=== PATIENT | male | born 2000 | race Caucasian/White ===

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

== ENCOUNTER → 2023-06-08 | Outpatient (CLI) | payer OTHER, SELFPAY ==
--- NOTE | 2023-06-07 12:11 | MRI_ITS ---
STUDY: MRI RIGHT ANKLE WITHOUT CONTRAST REASON FOR EXAM: Male, 22 years old. pain TECHNIQUE: Standardized fat and water weighted pulse sequences were obtained in all 3 orthogonal planes. COMPARISON: X-ray 05/15/2023 FINDINGS: Normal subcutis adipose space. Normal posterior tibialis tendon. Normal flexor digitorum longus tendon. Normal flexor hallucis longus tendon. Normal peroneus longus and brevis tendons. Normal tibialis anterior tendon. Normal extensor hallucis longus tendon. Normal extensor digitorum longus tendons. Normal Achilles tendon and teno-osseous insertion. Normal plantar fascia. Normal plantar calcaneal tubercles. Normal intrinsic muscles of the rearfoot. Normal distal tibiofibular syndesmotic ligamentous complex. Normal lateral ligamentous complex. Normal subtalar ligaments and sinus tarsi. Normal deltoid ligamentous complexes. Normal plantar calcaneonavicular (spring) ligament. Normal tibiotalar articulation. 5 x 12 mm grade 3 osteochondral defect of the medial shoulder of the talar dome with surrounding mild stress reaction. Normal subtalar articulations. Normal talonavicular articulation. Normal calcaneocuboid articulation. Normal navicular-cuneiform articulations. MRI/Lower Ext Joint Only (Routine) IMPRESSION: 5 x 12 mm grade 3 osteochondral defect of the medial shoulder of the talar dome with surrounding mild stress reaction. Electronically Signed: Marcial Redding MD at 21:01 EDT ,
== END | disposition home or self-care (01) ==
LOC: MRI 07:52
PROVIDERS: Referring Provider Orthopaedic Surgery; Visit Provider Orthopaedic Surgery
DX: M93.279 Osteochondritis dissecans, unspecified ankle and joints of foot (principal); S99.911A Unspecified injury of right ankle, initial encounter
CPT/HCPCS: 73721

== ENCOUNTER → 2023-09-06 | Outpatient (CLI) | payer OTHER, SELFPAY ==
[2023-09-06 19:10] LABS: Magnesium 2.6 mg/dL (1.6-2.6)
== END | disposition home or self-care (01) ==
LOC: LAB 16:29
PROVIDERS: Visit Provider Podiatrist Foot & Ankle Surgery
DX: Z01.818 Encounter for other preprocedural examination (principal)
CPT/HCPCS: 36415; 83735; 87081

== ENCOUNTER 2023-09-13 06:07 | Day surgery (SDC) | payer OTHER, SELFPAY ==
[2023-09-13] VITALS (9 sets, daily range): BP systolic 117–134; BP diastolic 54–71; PULSE 106–130; RESP 14–20; TEMP 37.3–37.9; O2SAT 99–100; BMI 23.1
[2023-09-13] MEDS: Acetaminophen 500 MG Tablet 1000 MG PO (06:52)
[2023-09-13] MEDS: Magnesium 1 GM over 15 mins IV (06:53)
[2023-09-13] MEDS: Lactated Ringers 1,000 ML 15 ML IV ×2 (06:53→09:20)
[2023-09-13] MEDS: Gabapentin 600 MG Tablet PO (06:53)
--- NOTE | 2023-09-13 07:32 | PCM.OPRPT ---
Problems Associated Problem List Diagnoses (1) Osteochondritis dissecans of ankle: (2) Right ankle injury: Report of Operation Date of Procedure: 09/13/23 Pre-Operative Diagnosis: 1. Osteochondritis dissecans, right ankle 2. Pain, right ankle Post-Operative Diagnosis: 1. Osteochondritis dissecans, right ankle 2. Pain, right ankle Surgery/Procedure Performed:: 1. Arthroscopy of right ankle with excessive debridement, right ankle 2. Arthroscopic repair of osteochondral dissecans repair, right ankle 2. [place] of bone marrow aspirate 3. PRP injection, right ankle Description of Surgical Findings:: 1. Evidence of OCD to the lateral aspect of the tibial plafond, right ankle 2. Complete resection of cartilage overlying the OCD of the medial talar shoulder, right ankle 3. Successful microfracturing of the OCD, medial talar shoulder, right ankle 4. Injection of 3 cc of PRP, right ankle Surgeon: Jb Gilbert skin care specialist: Casa Vincent Type of Anesthesia: Block,Regional and General Anesthesiologist: Alex Hansen Special Medications: 3 cc of platelet rich plasma injection to the right ankle Specimen's removed: None Drains: None Estimated Blood Loss (mL): 10 mL Fluids Replaced: Per anesthesia Description of Procedure: Indications For Operation: Mr. Robertson is a 22-year-old male who was admitted to [facility] for surgical repair of the right lower extremity OCD. Patient was initially seen by the orthopedic surgeon and referred to the office for foot and ankle evaluation. Patient had extensive workup with MRI as well as plain film x-ray. 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 Patient had surgical consultation in the office. Due to the nature of the OCD to the right ankle and had deemed necessary at this time to take the patient to the operating room to help relieve his constant pain. The nature of the problem, anticipated procedures, postop recovery/convalences and risk/complications include but not limited to infection, wound healing complications, hypertrophic scarring, numbness, tingling, chronic pain, CRPS, over and under correction, recurrence of deformity, DVT and or PE and the need for further surgery have been discussed in great detail with the patient. All questions have been answered to the patient's satisfaction. There are no guarantees given as to the outcome of the procedure. Description of Procedure: Under mild sedation, the patient was brought into the operating room and placed on the operating table in supine position. Once the patient was under general anesthesia with laryngeal mask airway, the right lower extremity was blocked per anesthesia with popliteal and saphenous block. Next, the right ankle had 10 cc of 1% lidocaine with epinephrine injected without incident. Please see anesthesia note for further detail. Next, a well-padded thigh tourniquet was applied to the right lower extremity. Next, the right lower extremity was prepped and draped in normal aseptic manner. Next, a timeout was then undertaken verifying the correct patient, extremity, visibility of preoperative markings, availability of the equipment. Next, attention was directed to the right ankle. Using the Jamshidi needle [place] of bone marrow aspirate, 60 cc, was removed and passed the back table to be sent off for spin down and PRP without incident. Next, injectable sterile saline 30 cc was injected to the right ankle without incident. The medial portal was established medial to the anterior tibial tendon. Using a #15 blade a small stab incision was made followed by blunt dissection with curved hemostats. Using the trocar and lithographic press operator the medial portal was established. Using the mini scope by [employer] the lateral portal was established with illumination guidance to the lateral aspect of the ankle. Care was taken to identify the subcutaneous nerves. Using a 15 blade and a small stab incision was made at the safe spot of the lateral ankle. Continued blunt dissection was carried down with curved hemostats until the portal was established. Using the trocar and obturator the lateral portal was established. Exploration of the ankle showed evidence of synovitis as well as an OCD to the lateral side of the tibia. Using the mini shaver by [employer], the cartilage on the tibia was removed to bleeding subchondral bone without incident. There was no violation of the weightbearing surface of the tibia at that time. Continue evaluation to the medial side of the ankle was identified, and evidence of synovitis was noted. After thorough checking of the ankle at all 19 spots of the right ankle were identified. Next, excessive debridement of all synovitis in the ankle was done without incident. The OCD was identified, under forced distraction, to the medial posterior aspect of the talar dome. Using a curette the articular cartilage was debrided down to and including subchondral bone without incident. All free-floating pieces of the articular cartilage was removed. Using the [employer] power pick, subchondral drilling was done, bleeding bone and marrow was noted into the ankle. After all debridement was done to the OCD, the ankle was put through range of motion and the ankle showed good movement with range of motion clinically as well as under mini arthroscope of visualization. The fluid was evacuated from the right ankle using the shaver vacuum. All incisions were flushed with copious lynn of normal saline. The right lower extremity was wiped clean and patted dry. All incisions were closed using 3-0 nylon in simple interrupted suture technique. An injection of 3 cc of PRP was administered to the right ankle without incident. All incisions were dressed with Betadine soaked Adaptic dry sterile dressing and a 2 layer Velez compression AO splint was applied to the right lower extremity. The patient tolerated the procedure and anesthesia well and apparent satisfactory condition and was transported to the PACU for further monitoring prior to discharge home. Vital signs stable and vascular status intact to all digits bilateral. Need for skilled academic assistant: Casa Vincent DPM was critical to the outcome of the case. During the course of the procedure the academic assistant physician played a vital role. His intimate knowledge of my steps in the procedure aided in safe and expedient completion of the procedure. The academic assistant surgeon played a vital role in positioning particularly in obtaining the appropriate positioning. The academic assistant surgeon was also vital in the retraction of soft tissues/and ankle distraction during the exposure and protecting vital structures when needed. The surgeon was also vital and obtaining OCD repair and assisting with instrumentation/hardware placement throughout the case. Post Operative Plan: Weightbearing: Nonweightbearing to the right lower extremity. Full weightbearing to left lower extremity. Antibiotics: 900 mg clindamycin through the IV DVT Prophylaxis: Aspirin 81 mg twice daily for 30 days Parekh: None Dressing: Betadine soaked Adaptic, dry sterile dressing, 2 layer Velez AO splint X-Rays: None needed Pain Medication: Percocet 5/325, Flexeril 10 mg 3 times daily as needed Follow-up: [address] Gilbert in private office. Grafts/Implants Used: None Complications None Admit VTE Documentation VTE Present on Admission: Yes VTE Mechan Device Prophylaxis: SCD's VTE Pharm Prophylaxis ordered?: Yes
[2023-09-13] MEDS: Clindamycin 900 MG/50 ML BAG 75 MG IV (07:35)
[2023-09-13] MEDS: Lidocaine 1%/Epi 1:200 (30ml) 30 ML AMPUL (07:42)
[2023-09-13 07:57] LABS: Bedside Glucose 178 mg/dL (74-106)
[2023-09-13] MEDS: Mupirocin Ointment 22gm Tube 1 APPLIC (08:17)
== END 2023-09-13 12:27 | disposition home or self-care (01) ==
LOC: SDC 09:32 → AC 09:56
PROVIDERS: Referring Provider Podiatrist Foot & Ankle Surgery; Visit Provider Podiatrist Foot & Ankle Surgery
PROC: (CPT 29898; principal; 2023-09-13 07:15)
DX: M93.2 Osteochondritis dissecans (principal); M65.879 Other synovitis and tenosynovitis, unspecified ankle and foot; F42.9 Obsessive-compulsive disorder, unspecified
CPT/HCPCS: 29898; 38220; 29891; 64450; 01464; 82962; J7120; J2405; J3475